=== PATIENT | male | born 1965 | race Two or more races ===

== ENCOUNTER → 2019-05-10 | Day surgery (SDC) | payer BC ==
[2019-05-09 09:03] LABS: BASOPHILS # (AUTO) 0.1 (0.0-0.1); BASOPHILS % 1.2 % (0.0-1.0); EOSINOPHILS # (AUTO) 0.5 (0.0-0.4); EOSINOPHILS % 8.7 % (0.0-6.0); HEMATOCRIT 42.2 % (38.2-49.6); HEMOGLOBIN 13.9 g/dL (14.0-18.0); LYMPHOCYTES # (AUTO) 1.6 (1.0-3.2); LYMPHOCYTES % 28.6 % (18.0-39.1); MEAN CORPUSCULAR HEMOGLOBIN 26.5 pg (28-32); MEAN CORPUSCULAR HGB CONC 32.9 g/dL (31-35); MEAN CORPUSCULAR VOLUME 80.4 fL (81-99); MONOCYTES # (AUTO) 0.5 (0.2-0.8); MONOCYTES % 8.3 % (4.4-11.3); PLATELET COUNT 193 x10e3/uL (140-360); RED BLOOD COUNT 5.25 x10e6/uL (4.3-5.7); RED CELL DISTRIBUTION WIDTH 12.8 % (11.7-14.4)
[2019-05-09 09:23] LABS: ANION GAP 11.6 mmol/L (8-16); BLOOD UREA NITROGEN 13 mg/dL (7-26); BUN/CREATININE RATIO 14 (6-25); CALCIUM 9.5 mg/dL (8.4-10.2); CARBON DIOXIDE 27 mmol/L (22-29); CHLORIDE 108 mmol/L (98-107); CREATININE, SERUM 0.94 mg/dL (0.72-1.25); EST GLOMERULAR FILTRATION RATE > 60 ML/MIN (60-); GLUCOSE 89 mg/dL (74-118); POTASSIUM 4.6 mmol/L (3.5-5.1); SODIUM 142 mmol/L (136-145)
--- NOTE | 2019-05-09 09:35 | Diagnostic Imaging Report ---
EXAMINATION: CHEST 2 VIEWS INDICATION: Pre-operative COMPARISON: None FINDINGS: LINES/TUBES:None LUNGS:The lungs are well-inflated. No focal consolidation or pulmonary edema. PLEURA:No pleural effusion or pneumothorax. MEDIASTINUM:The cardiomediastinal silhouette appears normal in size and shape. BONES/SOFT TISSUES:No acute osseous injury. Degenerative changes of the visualized spine. ABDOMEN:No free air under the diaphragm. IMPRESSION: No focal pneumonia or pulmonary edema. Signed by: Ashlie Ghotra MD on 05/09/2019 9:31 AM
[~2019-05-10] MED LIST: ANTIBIOTIC; B&O 60MG R/S 60 MG SUPP PR ONE; CEFTRIAXONE SOD 1 GM/NS 50 ML 50 ML IV ONE; FENTANYL CITRATE/PF 100MCG/2 ML INJ ONE; GLUCOSAMINE &1 EAC1 PO; LIDOCAINE HCL 2% LOCAL INJ 5 ML SDV VIAL INJ ONE; MIDAZOLAM HCL 2 MG/2 ML VIAL ONE; PROPOFOL IV EMULSION 10 MG/ML 20 ML VIAL ONE
--- OUTSIDE RECORDS SUMMARY | 2019-05-10 07:04 | XMS REPORT ---
Author [facility] Address Unknown Phone Unavailable Care Team Providers Care Chinese Instructor Name Role Phone Jerardo GONZALES Unavailable Unavailable Problems This patient has no known problems. Allergies, Adverse Reactions, Alerts This patient has no known allergies or adverse reactions. Medications This patient has no known medications. Results Test Description Test Time Test Comments Text Results Atomic Results Result Comments CHEST 2 VIEWS 2019-05-09 09:30:00 [facility] [address] [address] Patient Name: TOÑA CRISOSTOMO MR #: [id number] : 1965 Age/Sex: 53/M Req #: [id number] [facility] Physician: Ordered by: LEYLA GONZALES MD Report #: [id number] Location: OR Room/Bed: Procedure: [id number] DX/CHEST 2 VIEWS Exam Date: 05/09/19 Exam Time: 906 REPORT STATUS: Signed EXAMINATION: CHEST 2 VIEWS INDICATION: Pre-operative COMPARISON: None FINDINGS: LINES/TUBES:None LUNGS:The lungs are well-inflated. No focal consolidation or pulmonary edema. PLEURA:No pleural effusion or pneumothorax. MEDIASTINUM:The cardiomediastinal silhouette appears normal in size and shape. BONES/SOFT TISSUES:No acute osseous injury. Degenerative changes of the visualized spine. ABDOMEN:No free air under the diaphragm. IMPRESSION: No focal pneumonia or pulmonary edema. Signed by: Suzan Ghotra MD on 05/09/2019 9:31 AM Dictated By: SUZAN GHOTRA MD 0 Transcribed By: MICHAEL on 05/09/19930 COPY TO: LEYLA GONZALES MD
[2019-05-10 09:45] VITALS: BP 110/78
--- NOTE | 2019-05-10 16:06 | Operative Report ---
DATE OF PROCEDURE: 05/10/2019 SURGEON: Carlos Kumar MD PREOPERATIVE DIAGNOSES: 1. Elevated PSA. 2. Abnormal digital rectal exam. POSTOPERATIVE DIAGNOSES: 1. Elevated PSA. 2. Abnormal digital rectal exam. OPERATIVE PROCEDURE PERFORMED: Transrectal ultrasound biopsy of the prostate. ANESTHESIA: MAC. ESTIMATED BLOOD LOSS: Minimal. INDICATIONS: Mr. Chris Griffith is a 53-year-old black man with a recent elevation of his PSA and rectal examination with moderate induration on the right side of the apex. He now presents for potential diagnosis of this problem. PROCEDURE IN DETAIL: The patient was brought in the operating room, placed in supine position. After administration of IV sedation, he was placed in the left lateral decubitus position and prepped and draped in the usual fashion. Rectal examination was as previously described. Transrectal ultrasonography of the prostate was performed. This revealed no obvious hypoechoic lesions except for some mild irregularity on the right side at the mid and apex of the gland. There was also some calcifications noted in the transition zone. Twelve biopsies were taken in the standard fashion and labeled appropriately. These were sent to pathology for microscopic analysis. There was minimal bleeding noted at the conclusion of the procedure. The patient was returned to supine position and he was transferred to the bed and taken to the postanesthesia care unit in good condition. Of note, the needle and instrument count were correct at the conclusion of the case. Carlos Kumar MD HLW/MODL /[id number]
== END | disposition home or self-care (01) ==
LOC: OR 07:00
PROVIDERS: ATTEND Urology
DX: C61 Malignant neoplasm of prostate (principal); N42.31 Prostatic intraepithelial neoplasia; Z01.810 Encounter for preprocedural cardiovascular examination; Z01.812 Encounter for preprocedural laboratory examination; Z01.811 Encounter for preprocedural respiratory examination; K21.9 Gastro-esophageal reflux disease without esophagitis; D57.3 Sickle-cell trait; K62.89 Other specified diseases of anus and rectum
CPT/HCPCS: 36415; 55700; 71046; 76872; 80048; 85025; 88305; 88342; 93005; J0696; J2001; J2250; J2704; J3010; 76998